=== PATIENT | male | born 1975 | race Caucasian/White ===

== ENCOUNTER → 2019-12-18 11:26 | Outpatient (BNVA) | payer OTHER, SELFPAY | PROVIDERS: Family Provider Nurse Practitioner; PCP Nurse Practitioner; Visit Provider Nurse Practitioner Family | DX: N50.811 Right testicular pain (principal); R53.83 Other fatigue; W57.XXXA Bitten or stung by nonvenomous insect and other nonvenomous arthropods, initial encounter; Z12.5 Encounter for screening for malignant neoplasm of prostate; Z13.220 Encounter for screening for lipoid disorders; Z80.42 Family history of malignant neoplasm of prostate; F17.210 Nicotine dependence, cigarettes, uncomplicated | CPT/HCPCS: 80053; 80061; 81000; 84443; 85025; 86618; 86666; 86757; G0103 ==

== ENCOUNTER 2019-12-19 15:09 | Outpatient (CLI) | payer OTHER, SELFPAY ==
--- NOTE | 2019-12-19 15:45 | US_ITS ---
WS: [id number] SCROTAL ULTRASOUND EXAMINATION CLINICAL INFORMATION: right testicular pain COMPARISON: None. FINDINGS: TESTES Normal in size and echotexture, without focal lesion. Color Doppler: Normal color Doppler flow pattern. Right testes size: 3.1 cm x 1.5 cm x 1.4 cm. Left testes size: 2.8 cm x 1.6 cm x 1.6 cm. EPIDIDYMIDES Normal in size and echotexture, without focal lesion. Color Doppler: Normal color Doppler flow pattern. Normal epididymis bilaterally HYDROCELE None. VARICOCELE Small bilateral varicoceles described below OTHER FINDINGS None. US/US scrotum [id number] IMPRESSION: 1. Normal testicles bilaterally. 2. Bilateral varicoceles measuring 8 x 11 mm in the left and 7 x 10 mm in the right.
== END 2019-12-19 15:10 | disposition home or self-care (01) ==
LOC: RAD 15:12
PROVIDERS: PCP Nurse Practitioner; Visit Provider Nurse Practitioner Family
DX: N50.811 Right testicular pain (principal)
CPT/HCPCS: 76870

== ENCOUNTER → 2019-12-26 15:59 | Outpatient (BNVA) | payer OTHER, SELFPAY | PROVIDERS: PCP Nurse Practitioner; Visit Provider Urology | DX: N50.811 Right testicular pain (principal); E22.8 Other hyperfunction of pituitary gland; Z80.42 Family history of malignant neoplasm of prostate; R53.83 Other fatigue | CPT/HCPCS: 81001 ==

== ENCOUNTER → 2020-01-04 13:53 | Outpatient (BNVA) | payer OTHER, SELFPAY | PROVIDERS: PCP Nurse Practitioner; Visit Provider Internal Medicine | DX: E23.7 Disorder of pituitary gland, unspecified (principal); E30.9 Disorder of puberty, unspecified; R53.83 Other fatigue | CPT/HCPCS: 99203 ==

== ENCOUNTER 2020-01-14 15:29 | Outpatient (CLI) | payer OTHER, SELFPAY ==
[2020-01-14 21:38] LABS: Testosterone Total 374.8 ng/dL (249-836)
[2020-01-15 13:23] LABS: Luteinizing Hormone 1.3 mIU/mL (1.7-8.6); Prolactin 4.03 ng/mL (4.0-15.2); Thyroid Stimulating Hormone 2.22 uIU/mL (0.27-4.20)
[2020-01-15 13:48] LABS: Free T4 Free Thyroxine 1.08 ng/dL (0.82-1.77)
== END 2020-01-14 15:30 | disposition home or self-care (01) ==
LOC: LAB 15:34
PROVIDERS: PCP Nurse Practitioner; Visit Provider Internal Medicine
DX: E23.7 Disorder of pituitary gland, unspecified (principal)
CPT/HCPCS: 83002; 84146; 84403; 84439; 84443

== ENCOUNTER → 2020-01-29 11:13 | Outpatient (BNVA) | payer OTHER, SELFPAY | PROVIDERS: PCP Nurse Practitioner; Visit Provider Internal Medicine | DX: G47.9 Sleep disorder, unspecified (principal); E30.9 Disorder of puberty, unspecified; R53.83 Other fatigue | CPT/HCPCS: 99214 ==

== ENCOUNTER 2020-03-24 20:00 | Outpatient (CLI) | payer OTHER, SELFPAY | END 2020-03-24 20:01 | disposition home or self-care (01) | LOC: SLEEP 03-25 09:15 | PROVIDERS: PCP Nurse Practitioner; Visit Provider Internal Medicine | DX: R06.83 Snoring (principal); R53.83 Other fatigue | CPT/HCPCS: 95810 ==

== ENCOUNTER 2023-01-16 23:35 | Emergency (ER) | payer MEDICAID, SELFPAY ==
[2023-01-16 23:51] VITALS: BP 133/85; PULSE 70; RESP 16; TEMP 36.8; O2SAT 96; BMI 23.7
--- NOTE | 2023-01-17 00:10 | XRR_ITS ---
PROCEDURE INFORMATION: Exam: XR Pelvis Exam date and time: 01/17/2023 12:21 AM Age: 47 years old Clinical indication: Injury or trauma; Fall; Blunt trauma (contusions or hematomas); Patient HX: Tripped walking down steps and fell onto left hip. C/O pain. TECHNIQUE: Imaging protocol: Radiologic exam of the pelvis. Views: 1 or 2 view. COMPARISON: CR XR lumbar spine f/e only [id number] 07/12/2016 12:35 PM FINDINGS: Bones/joints: Unremarkable. No acute fracture. Soft tissues: Unremarkable. XR/XR pelvis 1-2V* [id number] IMPRESSION: No acute findings.
--- NOTE | 2023-01-17 00:10 | XRR_ITS ---
PROCEDURE INFORMATION: Exam: XR Left Hip Exam date and time: 01/17/2023 12:23 AM Age: 47 years old Clinical indication: Injury or trauma; Fall; Blunt trauma (contusions or hematomas); Patient HX: Tripped walking down steps and fell onto left hip. C/O pain. TECHNIQUE: Imaging protocol: Radiologic exam of the left hip. Views: 2 or 3 views hip with pelvis when performed. COMPARISON: CR XR pelvis 1-2V* [id number] 01/17/2023 12:21 AM FINDINGS: Bones/joints: Unremarkable. No acute fracture. Soft tissues: Unremarkable. XR/XR hip LT 2-3V wo/w pel* [id number] IMPRESSION: No acute findings.
[2023-01-17] MEDS: HYDROcodone-acetaminophen 5-325 mg Tablet 1 TAB PO (00:37)
[2023-01-17] MEDS: tetanus-dipt-pertussis 0.5 mL SDV IM (00:37)
[2023-01-17 00:40] VITALS: BP 122/91; PULSE 70; RESP 16; O2SAT 96
--- NOTE | 2023-01-17 01:04 | W.ED.FALL ---
HPI - Fall General: Chief Complaint: Fall Stated Complaint: fall down 7 stairs, left hip pain Time Seen by Provider: 01/17/23 00:04 Source: patient Mode of arrival: ambulatory Limitations: no limitations History of Present Illness: 47-year-old male who states that he had slipped and fell off the steps just prior arrival he landed on his left hip he states he does have left hip pain states he is able ambulate he rates his pain a 6 out of 10 denies any back pain he denies hitting his head denies any other injuries. Associated symptoms-after fall: Reports headache(s); Denies abdominal pain, chest pain or neck pain Review of Systems Const: Denies: fever(s) or chills ENMT: Denies: throat pain or dental pain Card: Denies: chest pain Resp: Denies: dyspnea GI: Denies: abdominal pain, nausea, vomiting or diarrhea Musc: Denies: neck pain or back pain Skin/Breast: Denies: rash Neuro: Reports: headache(s) [facility] ED PFSH: Medical History DDD (degenerative disc disease), lumbar Family history of prostate cancer Fatigue Surgical History History of back surgery Nerve surgery surgery Family History Mother Cancer liver, Hypertension Father , 57 Cancer prostate Other Diabetes Social History Smoking and tobacco status: current every day smoker Alcohol intake: never Substance/Drug Use: never Marital status: Current occupational status: employed Physical Exam Const: COMMON NORMALS: no acute distress, patient oriented x3 and healthy appearing HENMT: COMMON NORMALS: normocephalic and atraumatic HEAD & SCALP: normocephalic and atraumatic Neck/C-Spine: COMMON NORMALS: full ROM and supple Chest: COMMONS NORMALS: normal inspection of the chest Resp: COMMON NORMALS: normal respiratory effort Cardio: COMMON NORMALS: regular rate, regular rhythm and No murmurs present (Cardio) RATE: regular rate RHYTHM: regular rhythm GI: INSPECTION: Yes normal to inspection Extremity: NARRATIVE EXTREMITY EXAM: Some tenderness over left hip he has full range of motion he is amatory no obvious deformities Neuro: COMMON NORMALS: patient oriented x3, moves all extremities and no focal motor deficits Psych: COMMON NORMALS: mental status grossly normal, Normal thought process present and cooperative THOUGHT PROCESS: Normal thought process present Skin: COMMON NORMALS: no rashes or lesions noted and no wounds GENERAL SKIN EXAM: no rashes or lesions noted Course Vital Signs: Vital signs: Vital Signs Temperature 98.2 F 01/16/23 23:51 Pulse Rate 70 01/17/23 00:40 Respiratory Rate 16 01/17/23 00:40 Blood Pressure 122/91 01/17/23 00:40 Pulse Oximetry 96 01/17/23 00:40 Oxygen Delivery Me thod Room Air 01/17/23 00:40 MDM - Fall Medical Decision Making Patient presents here with hip contusion from a fall x-ray here shows no fracture he is ambulatory he is stable for discharge he is to follow-up with PCP and return if worsening. Lab Data Radiology Impressions Hip/Pelvis X-Ray 01/17/23 00:10 IMPRESSION: No acute findings. Pelvis X-Ray 01/17/23 00:10 IMPRESSION: No acute findings. Discharge Plan Discharge Patient Disposition: Home Clinical Impression: Contusion of left hip Condition: Stable Prescriptions: New Naprosyn 500 mg tablet 500 mg PO BID PRN (Reason: pain) Qty: 20 0RF No Action ibuprofen [Advil] 200 mg tablet 200 mg PO Q6H PRN sildenafil 100 mg tablet 100 mg PO DAILY PRN (Reason: sexual activity) Qty: 20 12RF Rx Instructions: 1 hour before intercourse on empty stomach. NO NITROGLYCERIN! Discharge Orders: Discharge ED (Routine); Ordered 01/17/23 Ordered By: Liza Ward Referrals: Rossy Stein APN [Primary Care Provider] - Discharge Diet: Advance as tolerated Discharge Activity: Resume usual activity Patient Instructions: Hip Contusion (ED) Coding Level of Care Code ED Rig Operator for Sheila Cruz
[2023-01-17 01:11] VITALS: BP 118/85; PULSE 66; RESP 16; O2SAT 96
== END 2023-01-17 01:07 | disposition home or self-care (01) ==
PROVIDERS: Emergency Provider Emergency Medicine; PCP Nurse Practitioner Family
DX: S70.02XA Contusion of left hip, initial encounter (principal); F17.210 Nicotine dependence, cigarettes, uncomplicated; W01.0XXA Fall on same level from slipping, tripping and stumbling without subsequent striking against object, initial encounter; Z23 Encounter for immunization
CPT/HCPCS: 72170; 73502; 90471; 90715; 99283

== ENCOUNTER 2023-07-24 19:37 | Emergency (ER) | payer MEDICAID, SELFPAY ==
--- NOTE | 2023-07-24 19:39 | XRR_ITS ---
PROCEDURE INFORMATION: Exam: XR Chest Exam date and time: 07/24/2023 8:53 PM Age: 48 years old Clinical indication: Cough and fever; Patient HX: Cough; Chest congestion; Fever TECHNIQUE: Imaging protocol: Radiologic exam of the chest. Views: 1 view. COMPARISON: No relevant prior studies available. FINDINGS: Lungs: Mild hyperinflation of the lungs suggestive of COPD/airways disease. No confluent consolidation. Pleural spaces: Unremarkable. No pleural effusion. No pneumothorax. Heart/Mediastinum: Unremarkable. No cardiomegaly. Bones/joints: Unremarkable. XR/XR chest 1V portable [id number] IMPRESSION: Mildly hyperinflated lungs without focal opacity.
[2023-07-24 20:03] VITALS: BP 137/90; PULSE 91; RESP 16; TEMP 37.4; O2SAT 94; BMI 25.0
[2023-07-24 22:13] LABS: Influenza A by IFA positive (Negative); Influenza B by IFA negative (Negative)
--- NOTE | 2023-07-24 22:16 | ED_ITS ---
HPI - General Adult General: Chief complaint: COVID symptoms Stated complaint: fever severe head ache cough body aches Time Seen by Provider: 07/24/23 21:07 Source: patient Mode of arrival: wheelchair Limitations: no limitations History of Present Illness: Patient 48-year-old male presents to ED today for evaluation of illness. Patient states approximately 2.5 days ago he began feeling ill. He states he began feeling achy and then that morning he was running fevers as high as 103, had a sore throat, headache, nasal congestion/sinus pressure, and chest congestion with productive cough. He has been taking Advil which does seem to help with the fevers. No rash. No abdominal pain, vomiting or diarrhea. No neck pain/stiffness. Son was recently sick but all he had was a sore throat. Onset (ago): day(s) Severity: moderate Relieving factors: other (Advil helps with fevers) Exacerbating factors: none Associated symptoms: Reports headache(s) and malaise; Deny chest pain, nausea, rash, palpitations, syncope or vomiting Treatments prior to arrival: other (Advil around 4 hours ago) Review of Systems Const: Reports: fever(s), chills, body aches and malaise Eyes: Denies: change in vision, blurry vision, photophobia, eye discharge or eye redness ENMT: Reports: throat pain, odynophagia, ear or mastoid pain, nasal discharge, nasal congestion and sinus pain Card: Denies: chest pain, palpitations, irregular heart rhythm, edema, swelling of feet/ankles, lightheadedness, syncope or pre-syncope Resp: Reports: productive cough and chest congestion; Denies: wheezing or hemoptysis GI: Denies: abdominal pain, nausea, vomiting or diarrhea : Denies: flank pain or dysuria Musc: Reports: other (Generalized body aches); Denies: neck pain, back pain, extremity pain or joint pain Skin/Breast: Denies: rash Neuro: Reports: headache(s); Denies: numbness in extremities, weakness in extremities, sensory changes or dizziness [facility] ED PFSH: Medical History DDD (degenerative disc disease), lumbar Fatigue Family history of prostate cancer Surgical History History of back surgery Nerve surgery surgery Family History Mother Cancer liver, Hypertension Father , 57 Cancer prostate Other Diabetes Social History Smoking and tobacco/nicotine status: current every day tobacco/nicotine user Alcohol intake: never Substance/Drug Use: never Marital status: Current occupational status: employed Physical Exam Const: COMMON NORMALS: no acute distress, average body habitus, patient oriented x3, no limitations, healthy appearing, alert and well nourished GENERAL APPEARANCE: cooperative ORIENTATION/CONSCIOUSNESS: Yes awake, Yes oriented to person, Yes oriented to place and Yes oriented to time HENMT: COMMON NORMALS: normocephalic, atraumatic, hearing grossly normal bilat erally, external ears normal, EAC's normal, TM's normal bilaterally, Normal external nose present, Normal nasal mucous membranes and turbinates present, moist oral mucous membranes and oropharynx normal HEAD & SCALP: normal to inspection, normocephalic and atraumatic FACE & SINUS: normal facial exam, face symmetric and sinus tenderness NOSE: Normal external nose present and Normal nasal mucous membranes and turbinates present EXTERNAL EAR: Yes external ears normal EXTERNAL AUDITORY CANAL: EAC's normal TYMPANIC MEMBRANE: TM's normal bilaterally MOUTH: Normal oral and palatal mucosa present and lip normal THROAT: posterior oropharynx normal, tonsils normal and uvula midline Eye: COMMON NORMALS: Equal, round and reactive pupils present, EOMs intact bilaterally and conjunctivae normal CONJUNCTIVA: Yes conjunctivae normal PUPIL: Yes Equal, round and reactive pupils present Neck/C-Spine: COMMON NORMALS: full ROM, no lymphadenopathy and no meningeal signs Resp: COMMON NORMALS: normal respiratory effort and clear to auscultation bilaterally AUSCULTATION: clear to auscultation bilaterally Cardio: COMMON NORMALS: regular rate and regular rhythm RATE: regular rate RHYTHM: regular rhythm Extremity: GENERAL: Yes normal exam except as noted Neuro: YONIS COMA SCALE: document GCS findings [place] coma scale eye openin g: Spontaneous [place] coma scale verbal response: Orientated [place] coma scale motor response: Obey commands Yonis coma scale total score: 15 COMMON NORMALS: patient oriented x3, moves all extremities, no focal motor deficits and no sensory deficits noted SENSORIUM/ORIENTATION: Yes alert, Yes oriented to person, Yes oriented to place and Yes oriented to time MENINGEAL SIGNS: Yes no meningeal signs Skin: COMMON NORMALS: no rashes or lesions noted GENERAL SKIN EXAM: no rashes or lesions noted Course Vital Signs: Vital signs: Vital Signs Temperature 99.4 F 07/24/23 20:03 Pulse Rate 91 07/24/23 20:03 Respiratory Rate 16 07/24/23 20:03 Blood Pressure 137/90 07/24/23 20:03 Pulse Oximetry 94 07/24/23 20:03 Oxygen Delivery Me thod Room Air 07/24/23 20:03 MDM - General Adult Medical Decision Making Patient is Influenza A +. Discussed conservative/symptomatic therapies at home. Return precautions discussed. Lab Data I reviewed the patient's lab results. Radiology Impressions Chest X-Ray 07/24/23 19:39 IMPRESSION: Mildly hyperinflated lungs without focal opacity. Laboratory Results Influenza Type A Ag positive (Negative) H 07/24/23 21:55 Influenza Type B Ag negative (Negative) 07/24/23 21:55 SARS-CoV-2 Ag (Rapid) negative (Negative) 07/24/23 21:55 All radiology interpretation(s) finalized by discharge Discharge Plan Discharge Patient Disposition: Home Clinical Impression: Influenza Condition: Stable Prescriptions: No Action ibuprofen [Advil] 200 mg tablet 200 mg PO Q6H PRN sildenafil 100 mg tablet 100 mg PO DAILY PRN (Reason: sexual activity) Qty: 20 12RF Rx Instructions: 1 hour before intercourse on empty stomach. NO NITROGLYCERIN! Naprosyn 500 mg tablet 500 mg PO BID PRN (Reason: pain) Qty: 20 0RF Discharge Orders: Discharge ED (Routine); Ordered 07/24/23 Ordered By: Preethi Piedra Referrals: Rossy Stein APN [Primary Care Provider] - Patient Instructions: Influenza (DC) Coding Level of Care Code ED Marketing Sales Supervisor for Sheila Cruz
[2023-07-24 22:21] LABS: SARS Covid-2 Antigen negative (Negative)
[2023-07-24] MEDS: acetaminophen 500 mg Tablet 1000 MG PO (22:31)
[2023-07-24 22:42] VITALS: BP 115/81; PULSE 86; RESP 21; O2SAT 99
== END 2023-07-24 22:40 | disposition home or self-care (01) ==
PROVIDERS: Emergency Medicine; Emergency Provider Physician Assistant; PCP Nurse Practitioner Family
DX: J10.1 Influenza due to other identified influenza virus with other respiratory manifestations (principal); Z11.52 Encounter for screening for COVID-19; Z72.0 Tobacco use
CPT/HCPCS: 71045; 87426; 87804; 99284

== ENCOUNTER → 2025-01-26 13:36 | Outpatient (BNVA) | payer MEDICARE, SELFPAY | PROVIDERS: PCP Nurse Practitioner Family; Visit Provider Emergency Medicine | DX: M25.572 Pain in left ankle and joints of left foot (principal) | CPT/HCPCS: 73610 ==

== ENCOUNTER 2025-04-09 18:46 | Emergency (ER) | payer MEDICARE, SELFPAY ==
[2025-04-09 18:52] VITALS: BP 160/102; PULSE 66; RESP 16; TEMP 36.7; O2SAT 97; BMI 23.6
--- OUTSIDE RECORDS SUMMARY | 2025-04-09 18:52 | XMS_ITS | Patient Health Record ---
Author Organization [facility] Address [address] [place], [place] [id number] Care Team Providers Care Stoner Hand Name Role Phone Non 1st Choice Provider, Provider Primary Care P jose elias Unavailable [address] Unavailable [phone] Reason For Referral No Information Plan Of Treatment No Information
--- OUTSIDE RECORDS SUMMARY | 2025-04-09 18:52 | XMS_ITS | Clinical Summary ---
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
[2025-04-09] MEDS: HYDROcodone-acetaminophen 7.5-325 mg Tablet 1 TAB PO (20:19)
[2025-04-09] MEDS: orphenadrine 30 mg/mL Inj 2 mL 60 MG IM (20:23)
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
--- NOTE | 2025-04-10 07:33 | DCPLANNER ---
Message sent to [facility] for referral
== END 2025-04-09 22:18 | disposition home or self-care (01) ==
PROVIDERS: Emergency Provider Physician Assistant; PCP Nurse Practitioner Family
DX: M54.50 Low back pain, unspecified (principal)
CPT/HCPCS: 96372; 99284; J1100; J1885; J2360; J9999

== ENCOUNTER 2025-04-15 10:41 | Emergency (ER) | payer MEDICARE, SELFPAY ==
--- NOTE | 2025-04-15 10:44 | XR_ITS ---
WS: [id number] Exam: XR chest 1V portable [id number] Date/Time of Exam: 04/15/2025 11:11 AM Reason For Exam: chest pain Comparison 07/24/2023. Lungs are fully inflated and clear. Normal cardiomediastinal silhouette and regional bony structures. Costophrenic angles are sharp. XR/XR chest 1V portable [id number] IMPRESSION: 1. Negative chest.
--- NOTE | 2025-04-15 10:44 | ECG_ITS ---
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 Measurements Intervals [place] Rate: 58 P: 56 [place]: 145 QRS: 64 QRSD: 100 T: 62 QT: 367 QTc: 362 Interpretive Statements SINUS BRADYCARDIA No previous ECG available for comparison Electronically Signed On 04-15-2025 18:11:30 TOP CLOSER by Edy Obrien M.D. [email or web address] [id number]
[2025-04-15 10:45] VITALS: BP 155/108; PULSE 60; RESP 16; TEMP 36.3; O2SAT 96
--- NOTE | 2025-04-15 10:46 | W.ED.GENADLT ---
HPI - General Adult General: Chief complaint: Chest Pain Stated complaint: chest pressure Time Seen by Provider: 04/15/25 10:44 History of Present Illness: 49-year-old male comes to the emergency room complaining of dull left-sided chest comfort began this morning no shortness of breath no radiation to the neck arms or back with that. No vomiting no diarrhea. No diaphoresis. No history of coronary artery disease no previous interventions. He states he is unsure whether or not he self had a stress test done. Associated symptoms: Deny chest pain, dyspnea or rash Related Data Home Medications ?Medication ?Instructions ?Recorded ?Confirmed ibuprofen 200 mg tablet (Advil) 200 mg PO Q6H PRN Pain 12/26/19 04/15/25 methocarbamol 750 mg tablet 750 mg PO Q8H 04/15/25 04/15/25 prednisone 10 mg tablets in a dose See Rx Instructions .Route .COMPLEX 04/15/25 04/15/25 pack Previous Rx's ?Medication ?Instructions ?Recorded hydrocodone 7.5 mg-acetaminophen 1 tab PO Q8H PRN pain #15 tabs 04/09/25 325 mg tablet aspirin 81 mg tablet,delayed 81 mg PO DAILY #30 tabs 04/15/25 release Allergies Allergy/AdvReac Type Severity Reaction Status Date / Time No Known Allergies Allergy Verified 04/09/25 18:59 Review of Systems Const: Denies: fever(s) or chills Card: Denies: chest pain Resp: Denies: dyspnea GI: Denies: abdominal pain : Denies: dysuria, urinary frequency or urinary urgency Musc: Denies: neck pain or back pain Skin/Breast: Denies: rash PFS ED PFSH: Medical History DDD (degenerative disc disease), lumbar Fatigue Family history of prostate cancer Surgical History History of back surgery Nerve surgery surgery Family History Mother Cancer liver, Hypertension Father , 57 Cancer prostate Other Diabetes Social History Smoking and tobacco/nicotine status: unknown if used tobacco/nicotine Alcohol intake: never Substance/Drug Use: never Marital status: Current occupational status: employed Physical Exam Const: COMMON NORMALS: no acute distress GENERAL APPEARANCE: cooperative and comfortable ORIENTATION/CONSCIOUSNESS: Yes awake, Yes oriented to person, Yes oriented to place and Yes oriented to time HENMT: COMMON NORMALS: normocephalic, atraumatic and hearing grossly normal bilaterally HEAD & SCALP: normocephalic and atraumatic Resp: COMMON NORMALS: normal respiratory effort, No retractions, No use of accessory muscles and clear to auscultation bilaterally AUSCULTATION: clear to auscultation bilaterally Cardio: COMMON NORMALS: regular rate, regular rhythm and No murmurs present (Cardio) RATE: regular rate RHYTHM: regular rhythm GI: COMMON NORMALS: Soft to palpation and No hepatosplenomegaly present AUSCULTATION: Yes normoactive bowel sounds PALPATION: Yes Soft to palpation, No Tenderness to palpation present (GI), No Guarding due to palpation present (GI) and Yes No hepatosplenomegaly present Extremity: COMMON NORMALS: normal to inspection, capillary refill normal, no clubbing, cyanosis or edema, no calf tenderness and no pedal edema Neuro: SENSORIUM/ORIENTATION: Yes oriented to person, Yes oriented to place and Yes oriented to time Skin: COMMON NORMALS: no rashes or lesions noted GENERAL SKIN EXAM: no rashes or lesions noted Course Vital Signs: Vital signs: Vital Signs Temperature 97.4 F L 04/15/25 10:45 Pulse Rate 55 L 04/15/25 13:08 Respiratory Rate 16 04/15/25 10:45 Blood Pressure 156/106 04/15/25 13:08 Pulse Oximetry 96 04/15/25 13:08 Oxygen Delivery Me thod Room Air 04/15/25 10:45 MDM - General Adult Medical Decision Making Cardiac enzymes EKG unremarkable no acute coronary syndrome chest x-ray negative he is not having any further symptoms we will discharge patient home have him follow-up with his outpatient stress test recommend baby aspirin daily Medical Records I reviewed the patient's medical records. Lab Data I reviewed the patient's lab results. 04/15/25 11:06 04/15/25 11:06 Radiology Impressions Chest X-Ray 04/15/25 10:44 IMPRESSION: 1. Negative chest. Laboratory Results WBC 11.01 10^3/uL (3.29-11.43) 04/15/25 11:06 RBC 5.15 10^6/uL (3.85-5.65) 04/15/25 11:06 Hgb 15.20 g/dL (11.27-16.99) 04/15/25 11:06 Hct 44.1 % (37-53) 04/15/25 11:06 MCV 85.6 fl (82-101) 04/15/25 11:06 MCH 29.5 pg (27-33) 04/15/25 11:06 MCHC 34.5 g/dL (30-55) 04/15/25 11:06 RDW 13.2 % (12.1-15.1) 04/15/25 11:06 Plt Count 279 10^3/cmm (157-399) 04/15/25 11:06 MPV 10.7 fL (7.4-10.4) H 04/15/25 11:06 Neut % (Auto) 59.3 % 04/15/25 11:06 Lymph % (Auto) 33.0 % 04/15/25 11:06 [place] % (Auto) 5.7 % 04/15/25 11:06 Eos % (Auto) 0.7 % 04/15/25 11:06 Baso % (Auto) 0.2 % 04/15/25 11:06 Neut # (Auto) 6.53 10^3/uL (1.8-7.7) 04/15/25 11:06 Lymph # (Auto) 3.6 10^3/uL (0.8-4.8) 04/15/25 11:06 [place] # (Auto) 0.6 10^3/uL (0.2-0.9) 04/15/25 11:06 Eos # (Auto) 0.1 10^3/uL (0.0-0.8) 04/15/25 11:06 Baso # (Auto) 0.0 10^3/uL (0.0-0.1) 04/15/25 11:06 Nucleated RBC % (auto) 0 % 04/15/25 11:06 Nucleated RBCs # 0.0 /100WBC 04/15/25 11:06 Sodium 141 mmol/L (136-145) 04/15/25 11:06 Potassium 4.0 mmol/L (3.5-5.1) 04/15/25 11:06 Chloride 105 mmol/L (98-107) 04/15/25 11:06 Carbon Dioxide 25 mmol/L (22-29) 04/15/25 11:06 Anion Gap 15.0 (5-19) 04/15/25 11:06 BUN 15 mg/dL (6-20) 04/15/25 11:06 Creatinine 0.7 mg/dL (0.7-1.2) 04/15/25 11:06 GFR Calculation 120.4 mL/min (90-130) 04/15/25 11:06 Glucose 93 mg/dL (65-115) 04/15/25 11:06 Calculated Osmolality 293 mOsm/kg (285-295) 04/15/25 11:06 Calcium 9.2 mg/dL (8.5-10.5) 04/15/25 11:06 Total Bilirubin 0.2 mg/dL (0.15-1.2) 04/15/25 11:06 AST 20 U/L (0-40) 04/15/25 11:06 ALT 63 U/L (0-41) H 04/15/25 11:06 Alkaline Phosphatase 113 U/L (40-130) 04/15/25 11:06 Troponin T Baseline 7 ng/L (0-15) 04/15/25 11:06 Troponin T 120 Minute 7.08 ng/L (0-15) 04/15/25 13:00 Delta Troponin T 0.08 ABS# (0-10) 04/15/25 13:00 Total Protein 6.7 g/dL (6.6-8.7) 04/15/25 11:06 Albumin 4.3 g/dL (3.5-5.2) 04/15/25 11:06 Globulin 2.4 g/dL (1.3-4.6) 04/15/25 11:06 All radiology interpretation(s) finalized by discharge EKG Data EKG 1: I personally reviewed and interpreted this EKG as follows: Interpretation: EKG 04/15/2025 10:51 AM normal sinus bradycardia rate of 58 TN interval 143 QTc 382 no acute changes no ST elevation or depression. No previous EKGs available for comparison Computer generated interpretation: Chest X-Ray 04/15/25 10:44 IMPRESSION: 1. Negative chest. EKG 2: I personally reviewed and interpreted this EKG as follows: Prior EKG tracings: available for review Interpretation: EKG 04/15/2025 1255 sinus bradycardia rate 53 TN interval 146 QTc 363. No acute changes noted. Compared to EKG done earlier same day no changes. Computer generated interpretation: Chest X-Ray 04/15/25 10:44 IMPRESSION: 1. Negative chest. Discharge Plan Discharge Patient Disposition: Home Clinical Impression: Atypical chest pain Condition: Stable Prescriptions: New aspirin 81 mg tablet,delayed release (DR/EC) 81 mg PO DAILY Qty: 30 0RF No Action ibuprofen [Advil] 200 mg tablet 200 mg PO Q6H PRN (Reason: Pain) hydrocodone-acetaminophen 7.5-325 mg tablet 1 tab PO Q8H PRN (Reason: pain) Qty: 15 0RF methocarbamol 750 mg tablet 750 mg PO Q8H prednisone 10 mg tablets,dose pack See Rx Instructions .ROUTE .COMPLEX Rx Instructions: Take 6 tablets by mouth on day 1, 5 tablets on day 2, 4 tablets on day 3, 3 tablets on day 4, 2 tablets on day 5, and 1 tablet a day 6. Discharge Orders: Discharge ED (Routine); Ordered 04/15/25 Ordered By: Santos Hardin Referrals: Rossy Stein APN [Primary Care Provider, Family Practice] Discharge Diet: Usual diet Discharge Activity: Increase activity as tolerated Patient Instructions: Opioid Safety, Pain Management, Patient Portal & Tori Instructions Activity Restrictions/Additional Instructions: Thank you for choosing [facility] for your healthcare needs today. It is very important that you follow up as instructed or that you return to the Emergency Department should you have concerns or if your condition changes or worsens in any way. Emergency department visits are focused on emergent conditions, in some cases you may require further evaluation on an outpatient basis. You were seen in the emergency room with complaint of chest discomfort. Your cardiac enzymes and EKG were normal chest x-ray was also normal your other labs were also unremarkable. Will discharge you home recommend he take a baby aspirin daily case management will set you up for an outpatient Lexiscan sestamibi stress test. (Please note that included in your discharge packet is information concerning opioid safety and pain management. 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
--- OUTSIDE RECORDS SUMMARY | 2025-04-15 10:46 | XMS_ITS | Clinical Summary ---
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
[2025-04-15 11:30] LABS: Hematocrit 44.1 % (37-53); Hemoglobin 15.20 g/dL (11.27-16.99); Mean Corpuscular HGB Conc 34.5 g/dL (30-55); Mean Corpuscular Hemoglobin 29.5 pg (27-33); Mean Corpuscular Volume 85.6 fl (82-101); Nucleated Red Blood Cells % 0 %; Platelet Count 279 10^3/cmm (157-399); Red Blood Count 5.15 10^6/uL (3.85-5.65); White Blood Count 11.01 10^3/uL (3.29-11.43)
[2025-04-15 11:41] LABS: Troponin(5th) Baseline 7 ng/L (0-15)
[2025-04-15 12:02] LABS: Alanine Aminotransferase 63 U/L (0-41); Albumin Level 4.3 g/dL (3.5-5.2); Alkaline Phosphatase 113 U/L (40-130); Anion Gap 15.0 (5-19); Aspartate Amino Transferase 20 U/L (0-40); Blood Urea Nitrogen 15 mg/dL (6-20); Calcium 9.2 mg/dL (8.5-10.5); Carbon Dioxide 25 mmol/L (22-29); Chloride 105 mmol/L (98-107); Creatinine Clr Calc Pharmacy 130.4246; Globulin 2.4 g/dL (1.3-4.6); Glucose 93 mg/dL (65-115); Osmolality Calculated 293 mOsm/kg (285-295); Potassium 4.0 mmol/L (3.5-5.1); Sodium 141 mmol/L (136-145); Total Protein 6.7 g/dL (6.6-8.7)
--- NOTE | 2025-04-15 12:55 | ECG_ITS ---
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 Measurements Intervals [place] Rate: 53 P: 66 OR: 146 QRS: 66 QRSD: 104 T: 66 QT: 385 QTc: 363 Interpretive Statements SINUS BRADYCARDIA Compared to ECG 04/15/2025 10:51:32 No significant changes Electronically Signed On 04-15-2025 18:14:14 HOTBED OPERATOR by Edy Obrien M.D. [id number]
[2025-04-15 13:08] VITALS: BP 156/106; PULSE 55; O2SAT 96
[2025-04-15 13:28] LABS: Troponin 5 2HR 7.08 ng/L (0-15); Troponin 5 2HR Delta 0.08 ABS# (0-10)
[2025-04-15 13:58] VITALS: BP 156/106; PULSE 58; O2SAT 97
--- NOTE | 2025-04-15 14:19 | DCPLANNER ---
faxed outpatient lexiscan to scheduling
== END 2025-04-15 14:07 | disposition home or self-care (01) ==
PROVIDERS: Physician Assistant; Emergency Provider Family Medicine; PCP Nurse Practitioner Family
DX: R07.89 Other chest pain (principal)
CPT/HCPCS: 36415; 71045; 80053; 84484; 85025; 93005; 99285; J9999

== ENCOUNTER → 2025-04-23 08:55 | Outpatient (BNVA) | payer MEDICARE, SELFPAY | PROVIDERS: PCP Nurse Practitioner Family; Visit Provider Orthopaedic Surgery | DX: M47.816 Spondylosis without myelopathy or radiculopathy, lumbar region (principal); M51.360 Other intervertebral disc degeneration, lumbar region with discogenic back pain only | CPT/HCPCS: 72110; 99204 ==

== ENCOUNTER 2025-05-09 11:04 | Outpatient (CLI) | payer MEDICARE, SELFPAY ==
--- NOTE | 2025-05-09 11:00 | MR_ITS ---
WS: [id number] MRI LUMBAR SPINE NONCONTRAST HISTORY: Chronic back pain. Pain in low back. COMPARISON: 04/13/2016 TECHNIQUE: Sagittal and axial multisequence imaging is submitted. Slight straightening of the normal lumbar lordosis. No reversal of curvature. No marrow edema or fracture. Disc spaces and vertebral body heights are well-preserved. Conus terminates normally at L1-2 disc level. L1-L2: Normal. L2-L3: Normal. L3-L4: Mild annular disc bulging. Mild disc encroachment upon the subarticular recesses. Slightly greater contact on the RIGHT traversing L4 nerve root. Mild ligamentum flavum hypertrophy. Mild bilateral foraminal stenosis. There is mild disc encroachment upon the exiting nerve roots. L4-L5: Diffuse annular disc bulging with moderate ligamentum flavum and facet arthritis. Disc encroachment upon the subarticular recesses and traversing L5 nerve roots. Mild central and bilateral subarticular recess and moderate foraminal stenosis. Mild progression of stenosis since the prior study. L5-S1: Mild annular disc bulging. Mild facet and ligamentum flavum hypertrophy. Mild foraminal stenosis. Similar to the prior study. MR/MR lumbar spine wo con* [id number] IMPRESSION: 1. No acute fractures or marrow edema. 2. Development of mild central, bilateral subarticular recess and moderate for aminal stenosis at L4-5 since 2016. Mild encroachment upon both the traversing and exiting nerve roots. 3. Mild foraminal stenosis at L5-S1 is unchanged. 4. Mild disc encroachment in the subarticular recesses at L3-4. Greater disc c ontact on the RIGHT traversing L4 nerve root. Mild foraminal stenosis.
== END 2025-05-09 11:05 | disposition home or self-care (01) ==
LOC: RAD 11:05
PROVIDERS: PCP Nurse Practitioner Family; Visit Provider Orthopaedic Surgery
DX: M54.9 Dorsalgia, unspecified (principal)
CPT/HCPCS: 72148